=== PATIENT | female | born 1970 | race Caucasian/White ===

== ENCOUNTER → 2024-11-28 | Outpatient (CLI) | payer BC, SELFPAY ==
--- NOTE | 2024-11-28 11:15 | XR_ITS ---
Examination: Thyroid sonography complete TECHNIQUE: By resolution grayscale sonographic images thyroid lobes are carful analysis Exam date and time: November 28, 2024 1137 hours INDICATIONS: Thyroid sonogram January 29, 2022 lower pole left thyroid nodule 2.2 cm FINDINGS: Right thyroid 5.4 x 2.7 x 2.4 cm Midpole vascular nodule 2.3 x 2.1 cm Lower pole vascular nodule 1.9 x 1.8 cm Lower pole vascular nodule 0.8 x 0.9 cm Left thyroid 5.4 x 1.8 x 2.2 cm Lower pole vascular nodule 2.5 x 1.9 cm Lower pole nodule 0.9 x 2.7 cm IMPRESSION: Multiple thyroid nodules as above, recommend ultrasound-guided fine-needle aspiration of the largest right and left thyroid nodules
== END | disposition home or self-care (01) ==
PROVIDERS: PCP Physician Assistant; Referring Provider Physician Assistant; Visit Provider Physician Assistant
DX: E04.2 Nontoxic multinodular goiter (principal)
CPT/HCPCS: 76536